=== PATIENT | male | born 1995 | race Caucasian/White ===

== ENCOUNTER 2023-11-23 14:13 | Emergency (ER) | payer OTHER ==
[2023-11-23 15:07] VITALS: BP 145/91; PULSE 107; RESP 18; TEMP 98; BMI 24.4
[2023-11-23 15:31] LABS: BASO % 0.3 % (0-2.0); EOS % 1.4 % (0-4.5); HEMATOCRIT 43.7 % (35.4-49); HEMOGLOBIN 15.4 GM/dL (11.7-16.9); LYMPH % 6.7 % (8-40); MCH 33.2 pg (25.7-33.7); MCHC 35.3 g/dl (32.0-35.9); MEAN CELL VOLUME 94.1 fl (80-96); MEAN PLT VOLUME 7.8 fl (7.5-11.1); MONO % 7.8 % (3.8-10.2); NEUT % 83.8 % (42.8-82.8); PLATELET COUNT 269 10^3/uL (134-434); RBC 4.64 M/mm3 (4.00-5.60); RDW 13.5 % (11.9-15.9); WHITE BLOOD COUNT 13.1 K/mm3 (4.0-10.0)
[2023-11-23 15:38] LABS: INR 0.95 (0.83-1.09); PROTHROMBIN TIME (PATIENT) 10.9 SEC (9.7-13.0)
[2023-11-23 15:41] LABS: ACTIVATED PTT 28.9 SECONDS (25.2-36.5)
[2023-11-23 15:54] LABS: POTASSIUM 3.8 mmol/L (3.5-5.1)
[2023-11-23 15:57] LABS: BLOOD UREA NITROGEN 13.1 mg/dL (7-18)
[2023-11-23 15:58] LABS: CALCIUM 10.4 mg/dL (8.5-10.1)
[2023-11-23 16:00] LABS: CREATININE 1.6 mg/dL (0.55-1.3)
[2023-11-23 16:02] LABS: BILIRUBIN,TOTAL 1.1 mg/dL (0.2-1); TOT PROT 8.6 g/dl (6.4-8.2)
[2023-11-23] MEDS ORDERED: LACTATED RINGERS SOLUTION 1000 ML INFUS.BAG IV ONE (16:55)
== END 2023-11-23 19:28 | disposition left against medical advice (07) ==
LOC: JER 14:13
DX: R56.9 Unspecified convulsions (principal); R41.0 Disorientation, unspecified; R55 Syncope and collapse
CPT/HCPCS: 36415; 70450-TC; 72125-TC; 80053; 82550; 82553; 82962; 85025; 85610; 85730; 86850; 86900; 86901; 93005; 93010; 99284-25